=== PATIENT | female | born 1970 | race Caucasian/White ===

== ENCOUNTER 2019-03-10 09:40 | Emergency (ER) | payer SELFPAY ==
[~2019-03-10] VITALS: Ht 162.6 cm; Wt 75.4 kg
[2019-03-10 09:46] VITALS: BP 137/77
[2019-03-10] MEDS ORDERED: METF850T PO (09:47)
--- NOTE | 2019-03-10 09:57 | NUR ---
PT AMBULATED TO BED 4
--- NOTE | 2019-03-10 10:06 | NUR ---
AAO X 4 48 YR OLD FEMALE BIB SELF W/ C/O UPPER MID BACK PAIN SINCE SUNDAY AND CHEST DISCOMFORT WHEN TAKING DEEP BREATHS. DENIES INJURIES. HX:DM
--- NOTE | 2019-03-10 10:12 | NUR ---
DR MEZA EVALUATING PT AT BEDSIDE
[2019-03-10] MEDS ORDERED: ACETAMINOPHEN 325 MG TAB PO ONE (10:20)
[2019-03-10 10:52] LABS: BASOPHILS # (AUTO) 0.1 K/uL (0.00-0.22); BASOPHILS % (AUTO) 0.8 % (0.0-2.0); EOSINOPHILS # (AUTO) 0.1 K/uL (0-0.4); EOSINOPHILS % (AUTO) 1.4 % (0.0-4.0); HEMATOCRIT 33.6 % (36-48); HEMOGLOBIN 10.4 g/dL (12.0-16.0); LYMPHOCYTES # (AUTO) 1.7 K/uL (2.5-16.5); LYMPHOCYTES % (AUTO) 26.3 % (20.5-51.1); MEAN CORPUSCULAR HEMOGLOBIN 23 pg (27-31); MEAN CORPUSCULAR HGB CONC 31 g/dL (33-37); MEAN CORPUSCULAR VOLUME 72.8 fL (80-94); MONOCYTES # (AUTO) 0.6 K/uL (0.8-1.0); MONOCYTES % (AUTO) 8.9 % (1.7-9.3); NEUTROPHILS % (AUTO) 62.6 % (42.2-75.2); PLATELET COUNT (AUTO) 256 K/uL (140-450); RED BLOOD CELL COUNT(AUTO) 4.61 MIL/uL (4.20-5.40); RED CELL DISTRIBUTION WIDTH 16.4 % (11.6-13.7); WHITE BLOOD COUNT (AUTO) 6.5 K/uL (4.8-10.8)
[2019-03-10 11:12] LABS: ALBUMIN 3.3 g/dL (3.4-5.0); ANION GAP 11.9 (8-16); CARBON DIOXIDE 26.4 mmol/L (21-32); CREATININE 0.7 mg/dL (0.6-1.3); POTASSIUM 4.3 mmol/L (3.5-5.1); TOTAL BILIRUBIN 0.3 mg/dL (0.0-1.0)
--- NOTE | 2019-03-10 12:05 | NUR ---
Dr. Rubi re-evaluating patient at bedside with the aid of a sales and marketing representative ID #: [id number].
[2019-03-10] MEDS ORDERED: KETOROLAC 15 MG/ML VIAL IM SCH (12:20)
[2019-03-10 12:24] VITALS: BP 111/67
--- NOTE | 2019-03-10 12:24 | NUR ---
Patient discharged with v/s stable. Written and verbal after care instructions given and explained. Patient verbalized understanding. Ambulatory with steady gait. All questions addressed prior to discharge. Advised to follow up with PMD.
== END 2019-03-10 12:24 | disposition home or self-care (01) ==
LOC: MED 09:40
DX: M54.6 Pain in thoracic spine (principal); R06.02 Shortness of breath; R07.89 Other chest pain; E11.9 Type 2 diabetes mellitus without complications; Z79.84 Long term (current) use of oral hypoglycemic drugs
CPT/HCPCS: 36415; 71046; 72072; 80053; 81002; 81025; 82948; 83690; 83880; 84484; 85025; 93005; 99284

== ENCOUNTER 2019-06-20 22:27 | Emergency (ER) | payer MEDICAID ==
[~2019-06-20] VITALS: Ht 157.5 cm; Wt 74.4 kg
[~2019-06-20 22:27] MED LIST: METF850T PO
[2019-06-20 22:35] VITALS: BP 131/83
--- NOTE | 2019-06-20 22:38 | NUR ---
TO BED # 06 AMBULATORY
--- NOTE | 2019-06-20 22:43 | NUR ---
PT AMBULATED TO BED 06.
--- NOTE | 2019-06-20 22:45 | NUR ---
HERE FOR ACCIDENTAL RIGHT HAND INCISED WOUND WITH A KNIFE WHILE TRYING TO OPEN A CAN. PRESSURE DRESSING APPLIED TO THE RIGHT HAND.
[2019-06-20] MEDS ORDERED: LIDOCAINE/EPI 1% 1:100000 20 ML VIAL INJ ONE (23:15)
--- NOTE | 2019-06-20 23:18 | NUR ---
TDAP 0.5 ML IM GIVEN VIA LEFT DELTOID. ER-MD AT BEDSIDE, REPAIR OF LACERATION STARTED.
--- NOTE | 2019-06-20 23:32 | NUR ---
REAPIR OF LACERATION COMPLETED. TOLERATED WELL.
[2019-06-20] MEDS ORDERED: BACITRACIN OINT 500 UNITS/GM PKT TP ONE (23:45)
[2019-06-20] MEDS ORDERED: NEOMYCIN/POLYMYXIN/BACITRACIN 0.9 GM/1 PKT TP ONE (23:50)
[2019-06-21] MEDS ORDERED: NEOMYCIN/POLYMYXIN/BACITRACIN 0.9 GM/1 PKT TP ONE
[2019-06-21 00:16] VITALS: BP 131/83
--- NOTE | 2019-06-21 00:16 | NUR ---
Patient discharged with v/s stable. Written and verbal after care instructions given and explained. Patient alert, oriented and verbalized understanding of instructions. Ambulatory with steady gait. All questions addressed prior to discharge. ID band removed. Patient advised to follow up with PMD. Rx of IBUPROFEN AND KEFLEX WAS given. Patient educated on indication of medication including possible reaction and side effects. Opportunity to ask questions provided and answered.
== END 2019-06-21 00:16 | disposition home or self-care (01) ==
LOC: MED 22:27
DX: S61.411A Laceration without foreign body of right hand, initial encounter (principal); E11.9 Type 2 diabetes mellitus without complications; Z79.84 Long term (current) use of oral hypoglycemic drugs; W26.0XXA Contact with knife, initial encounter; Y93.89 Activity, other specified; Y92.89 Other specified places as the place of occurrence of the external cause; Y99.8 Other external cause status
CPT/HCPCS: 12002; 90471; 90715; 99283; J2001

== ENCOUNTER 2019-06-21 08:50 | Emergency (ER) | payer MEDICAID ==
[~2019-06-21] VITALS: Ht 160 cm; Wt 75.3 kg
[2019-06-21 08:55] VITALS: BP 142/80
--- NOTE | 2019-06-21 08:56 | NUR ---
Patient transferred to bed 4 via wheelchair by tech. RN evaluating patient at bedside.
--- NOTE | 2019-06-21 09:13 | NUR ---
Pt c/o weakness, numbness, and tingling to her head. Pt states she feels like she is going to pass out; pt was seen yesteray for laceration to right hand and patient states "I don't know if I lost a lot of blood." Rt hand laceration covered by dressings w/o blood or drainage noticed. PATIENT STATES PAIN OF 0/10 AT THIS TIME; VSS; PATIENT POSITIONED FOR COMFORT; HOB ELEVATED; BEDRAILS UP X1; BED DOWN. ER MD MADE AWARE OF PT STATUS.
[2019-06-21] MEDS ORDERED: MECLIZINE 25 MG TAB PO ONE (09:15)
--- NOTE | 2019-06-21 09:22 | NUR ---
Per ER admitting pt is refusing to sign consent forms.
[2019-06-21 10:12] LABS: BASOPHILS % (AUTO) 0.5 % (0.0-2.0); EOSINOPHILS # (AUTO) 0.1 K/uL (0-0.4); HEMATOCRIT 29.5 % (36-48); HEMOGLOBIN 9.3 g/dL (12.0-16.0); LYMPHOCYTES # (AUTO) 1.6 K/uL (2.5-16.5); LYMPHOCYTES % (AUTO) 18.8 % (20.5-51.1); MEAN CORPUSCULAR HEMOGLOBIN 23 pg (27-31); MEAN CORPUSCULAR HGB CONC 32 g/dL (33-37); MONOCYTES # (AUTO) 0.7 K/uL (0.8-1.0); MONOCYTES % (AUTO) 8.5 % (1.7-9.3); NEUTROPHILS % (AUTO) 71.2 % (42.2-75.2); PLATELET COUNT (AUTO) 281 K/uL (140-450); RED CELL DISTRIBUTION WIDTH 15.9 % (11.6-13.7); WHITE BLOOD COUNT (AUTO) 8.4 K/uL (4.8-10.8)
--- NOTE | 2019-06-21 10:30 | NUR ---
PT IS RESTING IN BED WITH EYES CLOSED.
[2019-06-21 10:37] LABS: ANION GAP 11.3 (8-16); CARBON DIOXIDE 27.3 mmol/L (21-32); CREATININE 0.8 mg/dL (0.6-1.3); POTASSIUM 3.6 mmol/L (3.5-5.1)
[2019-06-21 11:08] VITALS: BP 113/55
== END 2019-06-21 11:08 | disposition home or self-care (01) ==
LOC: MED 08:50
DX: R42 Dizziness and giddiness (principal); D64.9 Anemia, unspecified; E11.9 Type 2 diabetes mellitus without complications; Z79.84 Long term (current) use of oral hypoglycemic drugs
CPT/HCPCS: 36415; 80048; 85025; 99283; J8597; 93005

== ENCOUNTER 2019-06-30 11:40 | Emergency (ER) | payer MEDICAID ==
[~2019-06-30] VITALS: Ht 162.6 cm; Wt 74.1 kg
[2019-06-30 11:41] VITALS: BP 121/83
--- NOTE | 2019-06-30 11:51 | NUR ---
PT AMBULATED TO THE BATHROOM WITH STEADY GAIT. URINE CUP GIVEN
--- NOTE | 2019-06-30 11:54 | NUR ---
PT AMBULATED TO BED 12 WITH STEADY GAIT.
--- NOTE | 2019-06-30 11:59 | NUR ---
BIB SELF. PRESENTS TO ED FOR SUTURE REMOVAL TO RIGHT PALM. PT WAS SEEN HERE ON 06/20/2019 FOR LACERATION S/P OPENING A CAN. SKIN IS INTACT AND DRY, NO DRAINAGE, NO REDNESS, + CMS TO RIGHT HAND, - SWELLING. PT TX IBUPROFEN LAST NIGHT WITH RELIEF. PMH: ANEMIA, DM MED RX: METFORMIN ALLERGY: DENIES
[2019-06-30 12:37] VITALS: BP 121/83
--- NOTE | 2019-06-30 12:37 | NUR ---
Patient discharged by Dr Gamble with v/s stable. Written and verbal after care instructions given and explained. Patient verbalized understanding. Ambulatory with steady gait. All questions addressed by Dr Gamble prior to discharge. Advised to follow up with PMD.
== END 2019-06-30 12:37 | disposition home or self-care (01) ==
LOC: MED 11:40
DX: S61.411D Laceration without foreign body of right hand, subsequent encounter (principal); E11.9 Type 2 diabetes mellitus without complications; Z79.84 Long term (current) use of oral hypoglycemic drugs; X58.XXXD Exposure to other specified factors, subsequent encounter
CPT/HCPCS: 81025; 99281; 99282

== ENCOUNTER 2019-10-15 14:58 | Emergency (ER) | payer MEDICAID ==
[~2019-10-15] VITALS: Ht 157.5 cm; Wt 74.4 kg
[2019-10-15 15:19] VITALS: BP 137/62
--- NOTE | 2019-10-15 15:32 | NUR ---
WAIT AT LOBBY
--- NOTE | 2019-10-15 15:57 | NUR ---
PT TO ER BED 6
[2019-10-15] MEDS ORDERED: hydrOXYzine HCL 25 MG TAB PO ONE (16:10)
[2019-10-15] MEDS ORDERED: KETOROLAC 60 MG/2 ML VIAL IM ONE (16:10)
[2019-10-15] MEDS ORDERED: METOCLOPRAMIDE 10 MG TAB PO ONE (16:10)
--- NOTE | 2019-10-15 16:20 | NUR ---
C/O FRONTAL LOBE/SINUSES PRESSURE, BODYACHES, FATIGUED X 1 WK [id number] LAST 3 DAYS---ADMITS HAD RECENT COLD SYMPTOMS FULL CLEAR SPEECH, DENIES N/V/D---
[2019-10-15 16:29] LABS: APPEARANCE,URINE CLEAR (CLEAR); BILIRUBIN,URINE NEGATIVE (NEGATIVE); BLOOD, URINE NEGATIVE (NEGATIVE); COLOR,URINE YELLOW (YELLOW); LEUKOCYTE ESTERASE ,URINE NEGATIVE (NEGATIVE); NITRITE, URINE NEGATIVE (NEGATIVE); UGLUCOSE 3+ (NEGATIVE)
--- NOTE | 2019-10-15 16:30 | NUR ---
INFLUENZA SWAB COLLECTED AND HANDED TO LAB
[2019-10-15 16:37] LABS: RBC,URINE NONE SEEN /HPF (0-5); WBC,URINE NONE SEEN /HPF (0-5)
[2019-10-15 17:23] VITALS: BP 112/67
--- NOTE | 2019-10-15 17:23 | NUR ---
Patient discharged with v/s stable. Written and verbal after care instructions given and explained REGARDING GENERAL HEADACHE WITHOUT A CAUSE. Patient alert, oriented and verbalized understanding of instructions. Ambulatory with steady gait. All questions addressed prior to discharge. ID band removed. Patient advised to follow up with PMD. Rx of PROMETHAZINE, FOIRICET given. Patient educated on indication of medication including possible reaction and side effects. Opportunity to ask questions provided and answered. PT GIVEN EXCUSE FOR WORK LOUIE MCGILL TRANSLATED DISCHARGE PAPERWORK GIVEN TO PT, NO FURTHER QUESTIONS FROM PT AT THIS TIME NADR, PAIN 01/29
== END 2019-10-15 17:23 | disposition home or self-care (01) ==
LOC: MED 14:58
DX: B34.9 Viral infection, unspecified (principal); E11.9 Type 2 diabetes mellitus without complications; Z79.84 Long term (current) use of oral hypoglycemic drugs
CPT/HCPCS: 81001; 81025; 87804; 96372; 99283; J1885; J8597